=== PATIENT | male | born 1950 | race African-American/Black ===

== ENCOUNTER 2019-05-25 06:57 | Emergency (ER) | payer OTHER ==
[2019-05-25] MEDS ORDERED: SODIUM CHLORIDE 0.9% 1L BAG IV* (07:29)
[2019-05-25] MEDS ORDERED: CEFEPIME 2GM/50 ML (PMX) 50 ML IVPB (07:29)
[2019-05-25] MEDS ORDERED: VANCOMYCIN 1 GM (PMX) 250 ML IVPB (07:30)
[2019-05-25] MEDS ORDERED: EPINEPHrine 10 MCG/1ml (10 ML SYG) IV (20:00)
[2019-05-25] MEDS ORDERED: CA CHLORIDE 10% 10 ML SYRINGE (20:00)
[2019-05-25] MEDS ORDERED: NA BICARBONATE 8.4% 50 ML SYG (20:00)
== END 2019-05-25 10:14 | disposition expired ==
LOC: E/R 06:57
DX: I46.9 Cardiac arrest, cause unspecified (principal)
CPT/HCPCS: 92950; 94002; 99285-25